=== PATIENT | female | born 1935 ===

== ENCOUNTER 2022-08-01 16:36 | Emergency (ER) | payer SELFPAY ==
[2022-08-02] MEDS ORDERED: cloNIDine 0.2 MG TAB PO ONE (01:50)
--- NOTE | 2022-08-02 01:54 | Emergency Department Report ---
HPI - General Chief Complaint: High BP Time Seen by Provider: 08/02/22 01:45 - HPI HPI: Room 3 Patient is 87-year-old female presenting with a chief complaint of hypertension. Patient states he has a history of high blood pressure but over the past 2 to 3 days she noticed her blood pressure has been elevated. Patient states she has intermittent lightheadedness especially in the mornings. Patient denies headache nausea or vomiting. Patient denies any other complaints. Patient denies feeling lightheaded at this moment ED Past Medical Hx - Past Medical History Previous Medical History?: Yes Hx Hypertension: Yes Additional medical history: Hard of Hearing - Surgical History Past Surgical History?: No - Family History Family history: no significant - Social History Smoking Status: Former Smoker (None x50 years) Substance Use Type: None ED Review of Systems ROS: Stated complaint: HIGH BP Other details as noted in HPI Constitutional: no symptoms reported Eyes: denies: eye pain ENT: denies: throat pain Respiratory: no symptoms reported Cardiovascular: denies: chest pain Endocrine: no symptoms reported Gastrointestinal: denies: abdominal pain, nausea, vomiting Genitourinary: denies: dysuria Musculoskeletal: denies: back pain Neurological: other (Lightheadedness). denies: headache Physical Exam - Physical Exam Vital Signs: Vital Signs 08/01/22 18:24 Temperature 97.9 F Pulse Rate 51 L Respiratory 18 Rate Blood Pressure 185/82 O2 Sat by Pulse 95 Oximetry Physical Exam: GENERAL: The patient is well-developed well-nourished female sitting on stretcher not appearing to be in acute distress. [] HEENT: Normocephalic. Atraumatic. Extraocular motions are intact. Patient has moist mucous membranes. NECK: Supple. Trachea midline CHEST/LUNGS: Clear to auscultation. There is no respiratory distress noted. HEART/CARDIOVASCULAR: Regular. There is no tachycardia. There is no gallop rub or murmur. ABDOMEN: Abdomen is soft, nontender. Patient has normal bowel sounds. There is no abdominal distention. SKIN: There is no rash. There is no edema. There is no diaphoresis. NEURO: The patient is awake, alert, and oriented. The patient is cooperative. The patient has no focal neurologic deficits. The patient has normal speech. Cranial nerves II through XII grossly intact. GCS 15 MUSCULOSKELETAL: There is no evidence of acute injury. ED Course Vital Signs 08/01/22 18:24 Temperature 97.9 F Pulse Rate 51 L Respiratory 18 Rate Blood Pressure 185/82 O2 Sat by Pulse 95 Oximetry ED Medical Decision Making - Radiology Data Radiology results: report reviewed (CT head), image reviewed (CT head) [facility] [address] [place] [address] Cat Scan Report Signed Patient: SONIA MURILLO MR#: [id number] : 1935 Acct:[id number] Age/Sex: 87 / F ADM Date: 08/01/22 Loc: ED Attending Dr: Ordering Physician: GRACIA BAY MD Date of Service: 08/02/22 Procedure(s): CT head/brain wo con Accession Number(s): [id number] cc: GRACIA BAY MD CT HEAD WITHOUT CONTRAST INDICATION / CLINICAL INFORMATION: Hypertension, dizziness. TECHNIQUE: CT head was performed without administration of intravenous contrast. All CT scans at this location are performed using CT dose reduction for ALARA by means of automated exposure con trol. COMPARISON: None available. FINDINGS: CEREBRAL HEMISPHERES: There is no evidence of large territorial infarction or significant abnormality of sparks-white matter differentiation. Ventricles within normal limits. No midline shift. Basal cisterns patent. HEMORRHAGE: None. CEREBELLUM / BRAINSTEM: No significant abnormality. ORBITS: No significant abnormality. Bilateral cataract surgery. SOFT TISSUES: No significant abnormality. SKULL: No significant abnormality. PARANASAL SINUSES / MASTOID AIR CELLS: Small osteoma right anterior ethmoid air cells. Paranasal sinuses and mastoid air cells are otherwise clear. ADDITIONAL FINDINGS: None. IMPRESSION: 1. 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 No acute intracranial pathology. Signer Name: Ella Thacker II, MD Signed: 08/02/2022 2:15 AM Workstation Name: [id number] Transcribed By: ANGELA Dictated By: ELLA THACKER II, MD Electronically Authenticated By: ELLA THACKER II, MD Signed Date/Time: 08/02/22214 DD/ 2 TD/TT: - Differential Diagnosis Uncontrolled hypertension, hypertensive urgency Critical care attestation.: If time is entered above; I have spent that time in minutes in the direct care of this critically ill patient, excluding procedure time. ED Disposition Clinical Impression: Hypertension Disposition: HOME / SELF CARE / HOMELESS Is pt being admited?: No Does the pt Need Aspirin: No Condition: Stable Instructions: Hypertension, Adult, [id number], Hypertension (ED) Additional Instructions: Return to the emergency department should you develop worsening symptoms, inability to tolerate food or liquids, high fever or any other concerns Referrals: PRIMARY CARE, [Referring] - 3-5 Days
--- NOTE | 2022-08-02 02:19 | Cat Scan Report ---
CT HEAD WITHOUT CONTRAST INDICATION / CLINICAL INFORMATION: Hypertension, dizziness. TECHNIQUE: CT head was performed without administration of intravenous contrast. All CT scans at this location are performed using CT dose reduction for ALARA by means of automated exposure control. COMPARISON: None available. FINDINGS: CEREBRAL HEMISPHERES: There is no evidence of large territorial infarction or significant abnormality of sparks-white matter differentiation. Ventricles within normal limits. No midline shift. Basal ciste rns patent. HEMORRHAGE: None. CEREBELLUM / BRAINSTEM: No significant abnormality. ORBITS: No significant abnormality. Bilateral cataract surgery. SOFT TISSUES: No significant abnormality. SKULL: No significant abnormality. PARANASAL SINUSES / MASTOID AIR CELLS: Small osteoma right anterior ethmoid air cells. Paranasal sinu ses and mastoid air cells are otherwise clear. ADDITIONAL FINDINGS: None. IMPRESSION: 1. 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 No acute intracranial p athology. Signer Name: Dayron Harper II, MD Signed: 08/02/2022 2:15 AM Workstation Name: [id number]
[2022-08-02 04:27] VITALS: BP 121/54
== END 2022-08-02 04:26 | disposition home or self-care (01) ==
LOC: ED 16:36
DX: I10 Essential (primary) hypertension (principal); Z87.891 Personal history of nicotine dependence
CPT/HCPCS: 70450; 99284